=== PATIENT | male | born 1940 | race Caucasian/White ===

== ENCOUNTER 2016-12-22 16:58 | Inpatient (IN) | payer OTHER ==
[~2016-12-22] VITALS: Ht 177.8 cm; Wt 71.4 kg
[2016-12-22 17:16] LABS: BASOPHIL COUNT 0.1 K/uL (0-0.1); EOSINOPHIL (%) 5.8 % (0-5); EOSINOPHIL COUNT 0.5 K/uL (0-0.3); HEMATOCRIT 38.1 % (38.0-50.0); IMMATURE GRANULOCYTE (%) 0.3 % (0.0-0.7); INSTRUMENT ABS NEUTROPHIL CT 4.7 K/uL; LYMPHOCYTE COUNT 1.9 K/uL (1.0-2.8); MCH 33.3 PG (29.0-34.0); MCHC 34.4 G/DL (30.0-36.0); MCV 96.9 FL (86-99); MEAN PLAT.VOLUME 9.6 uM^3 (9.0-12.4); MONOCYTE (%) 7.7 % (3-12); MONOCYTE COUNT 0.6 K/uL (0-0.8); NEUTROPHIL (%) 60.4 % (45-76); NEUTROPHIL COUNT 4.7 K/uL (1.8-6.4); PLATELET COUNT 217 K/uL (156-360); RBC DIS.WIDTH-CV 12.9 % (11.8-14.6); RBC DIS.WIDTH-SD 46.5 % (39-53); RED BLOOD COUNT 3.93 M/uL (4.00-5.50); WHITE BLOOD COUNT 7.7 K/uL (4.1-10.2)
[2016-12-22 17:22] LABS: PROTHROMBIN TIME 10.4 SEC (10.2-12.9)
[2016-12-22 17:24] LABS: PTT 28.5 SEC (25-37)
[2016-12-22 17:39] LABS: TROP-I INTERPRETATION NEGATIVE; TROPONIN-I < 0.01 ng/mL (0.0-0.30)
[2016-12-22 19:04] LABS: AMYLASE 69 IU/L (1-118); CHLORIDE 106 mEq/L (99-109); SODIUM 141 mEq/L (136-147)
[2016-12-22 19:06] LABS: GLUCOSE 114 mg/dL (70-99)
[2016-12-22 19:07] LABS: ANION GAP 10 MEQ/L (2-14)
[2016-12-22 19:09] LABS: GFR ESTIMATE (CALCULATED) > 59 mL/min/; SERUM ETHYL ALCOHOL < 10 mg/dL
[2016-12-22 19:10] LABS: UREA NITROGEN (BUN) 18 mg/dL (9-23)
[2016-12-22 19:12] LABS: LIPASE 28 U/L (1.0-51.0)
[2016-12-22 20:06] LABS: ADD MIUA? NO; BILIRUBIN NEGATIVE; BLOOD NEGATIVE; COLOR STRAW ((YELLOW)); GLUCOSE (STRIP) NEGATIVE; KETONES NEGATIVE; LEUKOCYTES NEGATIVE; NITRITE NEGATIVE; PROTEIN (STRIP) NEGATIVE; SPECIFIC GRAVITY 1.036 (1.000-1.030); UCUL ADDED? NO; UROBILINOGEN 0.2 MG/DL (0.2-1.0)
[2016-12-22 20:34] LABS: ADD MEDTOX COMMENT Y; AMPHETAMINE NEGATIVE (500 ng/mL); BARBITURATES PRESUMPTIVE POSITIVE (200 ng/mL); BENZODIAZEPINES NEGATIVE (150 ng/mL); COCAINE NEGATIVE (150 ng/mL); INTERNAL CONTROLS VALID? YES; METHADONE NEGATIVE (200 ng/mL); METHAMPHETAMINE NEGATIVE (500 ng/mL); OPIATES (MORPHINE) NEGATIVE (100 ng/mL); OXYCODONE NEGATIVE (100 ng/mL); PHENCYCLIDINE NEGATIVE (25 ng/mL); PROPOXYPHENE NEGATIVE (300 ng/mL); THC CANNABINOIDS NEGATIVE (50 ng/mL); TRICYCLIC ANTIDEPRESSANTS NEGATIVE (300 ng/mL)
[2016-12-22] MEDS ORDERED: DILANTIN100 MG PO (20:44)
[2016-12-22] MEDS ORDERED: CARDURA8 MG PO (20:45)
[2016-12-22] MEDS ORDERED: ATORVASTATIN CA20 MG PO (20:45)
[2016-12-22] MEDS ORDERED: LOPRESSOR50 MG PO (20:45)
[2016-12-22] MEDS ORDERED: AMLODIPINE BESY10 MG PO (20:46)
[2016-12-22] MEDS ORDERED: FINASTERIDE5 MG PO (20:46)
[2016-12-22] MEDS ORDERED: LO-DOSE ASPIRIN81 M2 PO (20:47)
[2016-12-22 20:57] LABS: BARBITUATES QUANT VALUE 0 NG/ML
[2016-12-22 22:40] LABS: HDL CHOLESTEROL 65 MG/DL (Desirable>=40); LDL CHOLESTEROL 55 mg/dL (Desirable<100); NON-HDL CHOLESTEROL 68 mg/dL (Desirable<160); TOTAL CHOLESTEROL 133 mg/dL (Desirable<200); TRIGLYCERIDES 65 MG/DL (Normal: <150)
[2016-12-23] VITALS (7 sets, daily range): BP systolic 118–186; BP diastolic 71–93
[2016-12-23 07:44] LABS: Estimated Average Glucose 114 mg/dL (70-123); HEMOGLOBIN A1c (GLYCOHEMOGLOB) 5.6 % HGB (Below 5.7)
[2016-12-24 00:14] VITALS: BP 128/73
[2016-12-24 04:01] VITALS: BP 121/80
[2016-12-24 05:54] LABS: MCH 34.5 PG (29.0-34.0); MCHC 35.3 G/DL (30.0-36.0); MCV 97.9 FL (86-99); PLATELET COUNT 227 K/uL (156-360); RBC DIS.WIDTH-CV 13.2 % (11.8-14.6); RBC DIS.WIDTH-SD 47.2 % (39-53); RED BLOOD COUNT 3.88 M/uL (4.00-5.50); WHITE BLOOD COUNT 6.1 K/uL (4.1-10.2)
[2016-12-24 06:15] LABS: ANION GAP 7 MEQ/L (2-14); CHLORIDE 108 MEQ/L (99-109); GFR ESTIMATE (CALCULATED) > 59 mL/min/; GLUCOSE 111 mg/dL (70-99); POTASSIUM 4.1 MEQ/L (3.7-5.4); SAMPLE HEMOLYSIS CHECK 0; SAMPLE ICTERIC CHECK 0; SAMPLE LIPEMIA CHECK 0; SODIUM 142 MEQ/L (136-147); UREA NITROGEN (BUN) 15 mg/dL (9-23)
[2016-12-24 07:42] VITALS: BP 136/87
[2016-12-24] MEDS ORDERED: CLOPIDOGREL75 MG PO (08:50)
== END 2016-12-24 10:30 | disposition home or self-care (01) | DRG 65 ==
LOC: EME 16:58 → EDOF 21:35 → ENRESERV 21:38 → EDOF 23:04 → 5SOUTH 23:04 → EDOF 23:04 → ENRESERV 23:05 → 5SOUTH 23:47
PROVIDERS: Emergency Medicine; Hospitalist; Internal Medicine
DX: I63.511 Cerebral infarction due to unspecified occlusion or stenosis of right middle cerebral artery (principal); Z86.73 Personal history of transient ischemic attack (TIA), and cerebral infarction without residual deficits; I10 Essential (primary) hypertension; G81.94 Hemiplegia, unspecified affecting left nondominant side; E78.5 Hyperlipidemia, unspecified; I34.0 Nonrheumatic mitral (valve) insufficiency; R29.701 NIHSS score 1; F17.200 Nicotine dependence, unspecified, uncomplicated; Z90.49 Acquired absence of other specified parts of digestive tract; Z82.49 Family history of ischemic heart disease and other diseases of the circulatory system; Z79.82 Long term (current) use of aspirin
CPT/HCPCS: 70450; 70496; 70498; 70551; 71010; 80048; 80061; 81003; 82150; 83036; 83690; 84484; 84999; 85025; 85027; 85610; 85730; 86850; 86900; 86901; 93306; 99281; 99285; G0480; J1644

== ENCOUNTER 2017-02-25 15:53 | Inpatient (IN) | payer OTHER ==
[~2017-02-25] VITALS: Ht 177.8 cm; Wt 71.3 kg
[~2017-02-25 15:53] MED LIST: AMLODIPINE BESY10 MG PO; ATORVASTATIN CA20 MG PO; CARDURA8 MG PO; CLOPIDOGREL75 MG PO; DILANTIN100 MG PO; FINASTERIDE5 MG PO; LO-DOSE ASPIRIN81 M2 PO; LOPRESSOR50 MG PO
[2017-02-25 16:38] LABS: HEMATOCRIT 32.4 % (38.0-50.0); MCH 33.8 PG (29.0-34.0); MCHC 34.3 G/DL (30.0-36.0); MCV 98.8 FL (86-99); PLATELET COUNT 212 K/uL (156-360); RBC DIS.WIDTH-CV 12.7 % (11.8-14.6); RBC DIS.WIDTH-SD 46.1 % (39-53); WHITE BLOOD COUNT 11.9 K/uL (4.1-10.2)
[2017-02-25 16:43] LABS: INTER. NORMALIZED RATIO 1.2
[2017-02-25 16:45] LABS: ALBUMIN 3.1 g/dL (3.2-4.8); CHLORIDE 101 mEq/L (99-109); POTASSIUM 4.1 mEq/L (3.7-5.4); PTT 28.7 SEC (25-37); SODIUM 139 mEq/L (136-147)
[2017-02-25 16:46] LABS: HEMOGLOBIN 11.1 G/DL (12.5-16.6); RED BLOOD COUNT 3.28 M/uL (4.00-5.50)
[2017-02-25 16:48] LABS: GLUCOSE 228 mg/dL (70-99); TOTAL PROTEIN 6.6 g/dL (6.4-8.3)
[2017-02-25 16:49] LABS: TOTAL BILIRUBIN 0.5 mg/dL (0.0-1.0)
[2017-02-25 16:51] LABS: ALKALINE PHOSPHATASE 87 IU/L (3-129); CREATININE 1.7 mg/dL (0.6-1.3); GFR ESTIMATE (CALCULATED) 42 mL/min/ (58.99-99999)
[2017-02-25 16:52] LABS: UREA NITROGEN (BUN) 34 mg/dL (9-23)
[2017-02-25 16:53] LABS: AST (GOT) 30 IU/L (2-34)
[2017-02-25 16:54] LABS: ALT (GPT) 26 IU/L (3-49)
[2017-02-25 16:57] LABS: TROP-I INTERPRETATION NEGATIVE; TROPONIN-I 0.21 ng/mL (0.0-0.30)
[2017-02-25 17:20] LABS: BAND NEUTROPHILS 13.9 % (0-8.0); EOSINOPHIL ABS CT 0; LYMPHOCYTES 11.3 % (15.0-45.0); METAMYELOCYTES 1.8 %; MYELOCYTES 2.6 %; PLAT.SUFFICIENCY ADEQUATE; SEG.NEUTROPHILS 70.4 % (46.0-76.0); SMUDGE CELLS 1.7
[2017-02-25 20:13] LABS: BASE EXCESS -1.6 mEq/L (-3 to +3); BICARBONATE 25.6 mEq/L (22-26); CARBOXY HGB 2.1 % (0-5); COMMENTS - BLOOD GASES A+C+; METHEMOGLOBIN 1.4 % (0-1.5); O2 FLOW 15 L/MIN; PCO2 52 mm Hg (35-45); PO2 128 mm Hg (80-100); SITE LR
[2017-02-25 20:14] LABS: DEVICE NRBM
[2017-02-26 04:58] LABS: APPEARANCE SL.HAZY ((CLEAR)); BILIRUBIN NEGATIVE; BLOOD MODERATE; COLOR AMBER ((YELLOW)); GLUCOSE (STRIP) NEGATIVE; KETONES NEGATIVE; LEUKOCYTES NEGATIVE; NITRITE NEGATIVE; PROTEIN (STRIP) 100; SPECIFIC GRAVITY 1.025 (1.000-1.030); UROBILINOGEN 0.2 MG/DL (0.2-1.0)
[2017-02-26 05:15] LABS: BACTERIA 1+ /HPF; EPITHELIAL CELLS NONE SEEN /HPF; HYALINE CASTS 0-5 /LPF; MUCUS TRACE /LPF; RED BLOOD CELLS 0-5 /HPF (0-5); UCUL ADDED? NO; WHITE BLOOD CELLS 0-5 /HPF (0-5)
[2017-02-26 05:24] VITALS: BP 130/72
[2017-02-26 06:30] LABS: HEMATOCRIT 29.7 % (38.0-50.0); HEMOGLOBIN 9.9 G/DL (12.5-16.6); MCH 33.1 PG (29.0-34.0); MCHC 33.3 G/DL (30.0-36.0); MCV 99.3 FL (86-99); RBC DIS.WIDTH-CV 12.9 % (11.8-14.6); RBC DIS.WIDTH-SD 47.5 % (39-53); RED BLOOD COUNT 2.99 M/uL (4.00-5.50); WHITE BLOOD COUNT 11.8 K/uL (4.1-10.2)
[2017-02-26 07:03] LABS: ALBUMIN 2.8 G/DL (3.2-4.8); ALKALINE PHOSPHATASE 67 IU/L (3-129); ALT (GPT) 25 IU/L (3-49); AST (GOT) 36 IU/L (2-34); CHLORIDE 107 MEQ/L (99-109); CREATININE 1.4 MG/DL (0.6-1.3); DIRECT BILIRUBIN 0.2 mg/dL (0.0-0.3); GFR ESTIMATE (CALCULATED) 52 mL/min/ (58.99-99999); GLUCOSE 133 mg/dL (70-99); SODIUM 143 MEQ/L (136-147); TOTAL BILIRUBIN 0.4 MG/DL (0.0-1.0); TOTAL PROTEIN 5.2 G/DL (6.4-8.3); UREA NITROGEN (BUN) 34 mg/dL (9-23)
[2017-02-26 07:06] LABS: EOSINOPHIL ABS CT 0; LYMPHOCYTES 4.4 % (15.0-45.0); MONOCYTES 2.6 % (0-9.0); PLAT.SUFFICIENCY ADEQUATE; PLATELET COUNT 213 K/uL (156-360); SMUDGE CELLS 0.9
[2017-02-26 08:10] VITALS: BP 132/57
[2017-02-26 12:01] VITALS: BP 100/64; BP 135/57
[2017-02-26 15:20] VITALS: BP 100/69
[2017-02-26 17:45] LABS: INTER. NORMALIZED RATIO 1.1
[2017-02-26 17:47] LABS: PTT 29.1 SEC (25-37)
[2017-02-26 20:00] VITALS: BP 107/64
[2017-02-27 00:30] VITALS: BP 104/63
[2017-02-27 04:58] VITALS: BP 119/73
[2017-02-27 05:19] LABS: HEMATOCRIT 27.7 % (38.0-50.0); HEMOGLOBIN 9.4 G/DL (12.5-16.6); MCH 33.3 PG (29.0-34.0); MCHC 33.9 G/DL (30.0-36.0); MCV 98.2 FL (86-99); PLATELET COUNT 222 K/uL (156-360); RBC DIS.WIDTH-CV 12.9 % (11.8-14.6); RBC DIS.WIDTH-SD 46.4 % (39-53); RED BLOOD COUNT 2.82 M/uL (4.00-5.50)
[2017-02-27 05:59] LABS: INTER. NORMALIZED RATIO 1.1
[2017-02-27 06:33] LABS: CHLORIDE 109 MEQ/L (99-109); CREATININE 1.2 MG/DL (0.6-1.3); GFR ESTIMATE (CALCULATED) > 59 mL/min/ (58.99-99999); POTASSIUM 4.3 MEQ/L (3.7-5.4); SODIUM 142 MEQ/L (136-147); UREA NITROGEN (BUN) 40 mg/dL (9-23)
[2017-02-27 06:34] LABS: GLUCOSE 253 mg/dL (70-99)
[2017-02-27 07:05] VITALS: BP 142/72
[2017-02-27 09:37] LABS: INTER. NORMALIZED RATIO 1.1
[2017-02-27 09:40] LABS: PTT 42.3 SEC (25-37)
[2017-02-27 12:07] VITALS: BP 124/67
[2017-02-27 16:23] VITALS: BP 132/71
[2017-02-27 20:10] VITALS: BP 109/88
[2017-02-28] VITALS (7 sets, daily range): BP systolic 118–130; BP diastolic 64–82
[2017-02-28 05:54] LABS: BASOPHIL (%) 0.2 % (0-1); EOSINOPHIL (%) 0.1 % (0-5); HEMATOCRIT 28.4 % (38.0-50.0); HEMOGLOBIN 9.9 G/DL (12.5-16.6); IMMATURE GRANULOCYTE (%) 2.2 % (0.0-0.7); LYMPHOCYTE (%) 8.1 % (15-42); LYMPHOCYTE COUNT 1.2 K/uL (1.0-2.8); MCHC 34.9 G/DL (30.0-36.0); MCV 97.6 FL (86-99); MONOCYTE (%) 6.6 % (3-12); NEUTROPHIL (%) 82.8 % (45-76); NEUTROPHIL COUNT 12.3 K/uL (1.8-6.4); PLATELET COUNT 252 K/uL (156-360); RBC DIS.WIDTH-CV 12.9 % (11.8-14.6); RBC DIS.WIDTH-SD 46.8 % (39-53); RED BLOOD COUNT 2.91 M/uL (4.00-5.50); WHITE BLOOD COUNT 14.8 K/uL (4.1-10.2)
[2017-02-28 06:15] LABS: INTER. NORMALIZED RATIO 1.1
[2017-02-28 06:17] LABS: PTT 48.1 SEC (25-37)
[2017-02-28 06:38] LABS: INTER. NORMALIZED RATIO 1.2
[2017-02-28 13:13] LABS: INTER. NORMALIZED RATIO 1.2
[2017-02-28 13:16] LABS: PTT 54.6 SEC (25-37)
[2017-02-28 20:19] LABS: INTER. NORMALIZED RATIO 1.4
[2017-02-28 20:22] LABS: PTT 64.7 SEC (25-37)
[2017-03-01 02:47] LABS: INTER. NORMALIZED RATIO 1.4
[2017-03-01 02:50] LABS: PTT 63.1 SEC (25-37)
[2017-03-01 04:48] VITALS: BP 142/75
[2017-03-01 05:32] LABS: BASOPHIL (%) 0.2 % (0-1); EOSINOPHIL (%) 0.1 % (0-5); HEMATOCRIT 26.2 % (38.0-50.0); HEMOGLOBIN 9.1 G/DL (12.5-16.6); IMMATURE GRANULOCYTE (%) 4.6 % (0.0-0.7); LYMPHOCYTE (%) 8.6 % (15-42); LYMPHOCYTE COUNT 1.3 K/uL (1.0-2.8); MCH 33.7 PG (29.0-34.0); MCHC 34.7 G/DL (30.0-36.0); MONOCYTE (%) 6.1 % (3-12); MONOCYTE COUNT 0.9 K/uL (0-0.8); NEUTROPHIL (%) 80.4 % (45-76); NEUTROPHIL COUNT 11.8 K/uL (1.8-6.4); PLATELET COUNT 275 K/uL (156-360); RBC DIS.WIDTH-CV 13.3 % (11.8-14.6); RBC DIS.WIDTH-SD 47.5 % (39-53); WHITE BLOOD COUNT 14.7 K/uL (4.1-10.2)
[2017-03-01 05:33] LABS: INTER. NORMALIZED RATIO 1.4
[2017-03-01 06:37] LABS: CHLORIDE 107 MEQ/L (99-109); GFR ESTIMATE (CALCULATED) > 59 mL/min/ (58.99-99999); GLUCOSE 244 mg/dL (70-99); SODIUM 142 MEQ/L (136-147); UREA NITROGEN (BUN) 25 mg/dL (9-23)
[2017-03-01 07:02] VITALS: BP 118/76
[2017-03-01 12:03] VITALS: BP 116/66
[2017-03-01 15:24] VITALS: BP 117/57
[2017-03-01 19:29] VITALS: BP 105/66
[2017-03-01 23:41] VITALS: BP 120/70
[2017-03-02 04:43] VITALS: BP 112/68
[2017-03-02 06:44] LABS: INTER. NORMALIZED RATIO 1.6
[2017-03-02 06:45] LABS: HEMATOCRIT 27.7 % (38.0-50.0); HEMOGLOBIN 9.4 G/DL (12.5-16.6); MCH 33.2 PG (29.0-34.0); MCHC 33.9 G/DL (30.0-36.0); MCV 97.9 FL (86-99); PLATELET COUNT 335 K/uL (156-360); RBC DIS.WIDTH-CV 13.3 % (11.8-14.6); RBC DIS.WIDTH-SD 48.3 % (39-53); RED BLOOD COUNT 2.83 M/uL (4.00-5.50); WHITE BLOOD COUNT 15.5 K/uL (4.1-10.2)
[2017-03-02 06:47] LABS: PTT 65.7 SEC (25-37)
[2017-03-02 06:54] LABS: CHLORIDE 105 MEQ/L (99-109); GFR ESTIMATE (CALCULATED) > 59 mL/min/ (58.99-99999); GLUCOSE 311 mg/dL (70-99); POTASSIUM 4.6 MEQ/L (3.7-5.4); SODIUM 139 MEQ/L (136-147); UREA NITROGEN (BUN) 25 mg/dL (9-23)
[2017-03-02 07:28] VITALS: BP 130/88
[2017-03-02 07:35] LABS: ABS NEUTROPHIL COUNT 13.1; ATYPICAL LYMPHOCYTE 1.7 %; BAND NEUTROPHILS 0.9 % (0-8.0); EOSINOPHIL ABS CT 0.3; EOSINOPHILS 1.7 % (0-5.0); LYMPHOCYTES 7.7 % (15.0-45.0); METAMYELOCYTES 1.7 %; MONOCYTES 0.8 % (0-9.0); MYELOCYTES 1.7 %; PLAT.SUFFICIENCY ADEQUATE; POLYCHROMASIA 1+; SEG.NEUTROPHILS 83.8 % (46.0-76.0); TOXIC GRANULATION 1+
[2017-03-02 11:27] VITALS: BP 124/69
[2017-03-02 16:15] VITALS: BP 158/84
[2017-03-02 20:00] VITALS: BP 136/93
[2017-03-02 23:55] VITALS: BP 134/90
[2017-03-03 04:00] VITALS: BP 126/71
[2017-03-03 05:37] LABS: HEMATOCRIT 31.1 % (38.0-50.0); HEMOGLOBIN 10.3 G/DL (12.5-16.6); MCH 32.5 PG (29.0-34.0); MCHC 33.1 G/DL (30.0-36.0); MCV 98.1 FL (86-99); NRBC (%) 0.2 /100 WBC (0-0); PLATELET COUNT 419 K/uL (156-360); RBC DIS.WIDTH-CV 13.6 % (11.8-14.6); RBC DIS.WIDTH-SD 48.6 % (39-53); RED BLOOD COUNT 3.17 M/uL (4.00-5.50); WHITE BLOOD COUNT 17.1 K/uL (4.1-10.2)
[2017-03-03 05:39] LABS: INTER. NORMALIZED RATIO 1.9
[2017-03-03 05:42] LABS: PTT 79.2 SEC (25-37)
[2017-03-03 06:24] LABS: ABS NEUTROPHIL COUNT 13.8; ACANTHOCYTES 1+; BAND NEUTROPHILS 0.9 % (0-8.0); EOSINOPHIL ABS CT 0; MONOCYTES 2.6 % (0-9.0); MYELOCYTES 3.5 %; PLAT.SUFFICIENCY ADEQUATE
[2017-03-03 06:55] LABS: CHLORIDE 104 MEQ/L (99-109); CREATININE 1.2 MG/DL (0.6-1.3); GFR ESTIMATE (CALCULATED) > 59 mL/min/ (58.99-99999); GLUCOSE 234 mg/dL (70-99); POTASSIUM 4.3 MEQ/L (3.7-5.4); SODIUM 141 MEQ/L (136-147); UREA NITROGEN (BUN) 28 mg/dL (9-23)
[2017-03-03 07:25] VITALS: BP 147/78
[2017-03-03 11:54] VITALS: BP 119/78
[2017-03-03 16:01] VITALS: BP 129/84
[2017-03-03 20:00] VITALS: BP 140/56
[2017-03-03 23:55] VITALS: BP 137/78
[2017-03-04 04:00] VITALS: BP 135/73
[2017-03-04 05:49] LABS: HEMATOCRIT 30.3 % (38.0-50.0); HEMOGLOBIN 9.9 G/DL (12.5-16.6); MCH 32.1 PG (29.0-34.0); MCHC 32.7 G/DL (30.0-36.0); MCV 98.4 FL (86-99); NRBC (%) 0.2 /100 WBC (0-0); PLATELET COUNT 416 K/uL (156-360); RBC DIS.WIDTH-CV 13.8 % (11.8-14.6); RBC DIS.WIDTH-SD 48.8 % (39-53); RED BLOOD COUNT 3.08 M/uL (4.00-5.50); WHITE BLOOD COUNT 15.3 K/uL (4.1-10.2)
[2017-03-04 07:21] VITALS: BP 138/77
[2017-03-04] MEDS ORDERED: LOPRESSOR100 M1 PO (13:00)
[2017-03-04] MEDS ORDERED: AUGMENTIN875 MG PO (13:00)
[2017-03-04] MEDS ORDERED: ADVAIR HFA120 INHALA IH (13:00)
[2017-03-04] MEDS ORDERED: PROAIR HFA8.5 GM IH (13:00)
[2017-03-04] MEDS ORDERED: SPIRIVA RESPIMAT4 GM IH (13:00)
[2017-03-04] MEDS ORDERED: COUMADIN4 MG PO (13:00)
[2017-03-04] MEDS ORDERED: CARDIZEM CD,CA240 MG PO (13:00)
[2017-03-04] MEDS ORDERED: PREDNISONE10 MG PO (13:00)
[2017-03-04 14:12] LABS: INTER. NORMALIZED RATIO 1.8
== END 2017-03-04 14:10 | disposition home or self-care (01) | DRG 871 ==
LOC: EME 15:53 → 4EAST 19:33 → EDOF 19:33 → ENRESERV 19:34 → 4EAST 02-26 04:49
PROVIDERS: Emergency Medicine; Hospitalist; Internal Medicine; Internal Medicine Cardiovascular Disease; Physician Assistant Medical; Student in an Organized Health Care Education/Training Program
PROC: 5A09358 Assistance with Respiratory Ventilation, Less than 24 Consecutive Hours, Intermittent Positive Airway Pressure (ICD-10-PCS; principal; 2017-02-25)
DX: A41.9 Sepsis, unspecified organism (principal); J18.9 Pneumonia, unspecified organism; J96.01 Acute respiratory failure with hypoxia; J96.02 Acute respiratory failure with hypercapnia; J44.0 Chronic obstructive pulmonary disease with (acute) lower respiratory infection; J44.1 Chronic obstructive pulmonary disease with (acute) exacerbation; N17.9 Acute kidney failure, unspecified; I48.4 Atypical atrial flutter; I48.91 Unspecified atrial fibrillation; E87.70 Fluid overload, unspecified; I27.20 Pulmonary hypertension, unspecified; I08.1 Rheumatic disorders of both mitral and tricuspid valves; I10 Essential (primary) hypertension; E78.5 Hyperlipidemia, unspecified; G40.909 Epilepsy, unspecified, not intractable, without status epilepticus; D64.9 Anemia, unspecified; I69.351 Hemiplegia and hemiparesis following cerebral infarction affecting right dominant side; Z79.01 Long term (current) use of anticoagulants; Z79.02 Long term (current) use of antithrombotics/antiplatelets; Z86.010 Personal history of colon polyps; Z90.49 Acquired absence of other specified parts of digestive tract; Z87.891 Personal history of nicotine dependence
CPT/HCPCS: 36600; 71010; 71020; 80048; 80053; 80076; 80185; 81003; 82803; 83605; 84484; 85025; 85027; 85610; 85730; 87040; 87070; 87205; 87449; 87502; 93005; 93306; 94002; 94640; 94640 76; 94667; 94668; 94799; 97530 GP; 99202; 99281; 99285; J0295; J0456; J0696; J1160; J1644; J1940; J2920; J2930; J7050; J7512